=== PATIENT | female | born 2000 | race Caucasian/White ===

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

== ENCOUNTER 2022-01-28 08:00 | Outpatient (CLI) | payer BC ==
[2022-01-28 16:06] LABS: INFLUENZA A- RESP PCR PANEL NOT DETECTED; INFLUENZA B - RESP PCR PANEL NOT DETECTED; RSV- RESP PCR PANEL DETECTED; SARS-CoV-2 -RESP PCR PANEL NOT DETECTED
== END 2022-01-28 23:59 | disposition home or self-care (01) ==
LOC: LAB.S 08:00
PROVIDERS: ATTEND Registered Nurse
DX: R53.83 Other fatigue (principal); R05.1 Acute cough; R82.79 Other abnormal findings on microbiological examination of urine; R11.0 Nausea; R10.9 Unspecified abdominal pain; Z20.822 Contact with and (suspected) exposure to COVID-19; J34.89 Other specified disorders of nose and nasal sinuses
CPT/HCPCS: 36415; 80053; 85025; 86308; 87086; 87637

== ENCOUNTER 2022-01-28 13:35 | Outpatient (CLI) | payer BC ==
--- NOTE | 2022-01-28 13:32 | XRAY Report ---
PROCEDURE: Chest 2 View X-Ray INDICATIONS: ACUTE COUGH AND FATIGUE TECHNIQUE: 2 views of the chest were acquired. COMPARISON: 12/28/2016 FINDINGS: Surgical changes and devices: None. Lungs and pleura: No pleural effusions or pneumothorax. Lungs are clear. Mild peribronchial cuffin g. Mediastinum: Mediastinal contours are normal. Heart size is normal. Bones and chest wall: No suspicious bony abnormalities. Soft tissues appear unremarkable. Scoliosi s. IMPRESSION: No acute radiographic abnormality. Mild peribronchial cuffing can be seen with reactive or infectious bronchitis. Reviewed by: Ronaldo Doyle MD on 01/28/2022 1:30 PM [facility] Approved by: Ronaldo Doyle MD on 01/28/2022 1:30 PM PST Station ID: [id number]
[2022-01-28 20:01] LABS: BASOPHILS % (AUTO) 0.5 %; EOSINOPHILS # (AUTO) 0.1 10^3/uL (0.0-0.7); EOSINOPHILS % (AUTO) 0.6 %; HCT - HEMATOCRIT 44.7 % (37.0-47.0); HGB - HEMOGLOBIN 14.1 g/dL (12.0-16.0); LYMPHOCYTES # (AUTO) 2.1 10^3/uL (1.5-3.5); LYMPHOCYTES % (AUTO) 26.4 %; MEAN CORPUSCULAR HEMOGLOBIN 27.1 pg (27.0-31.0); MEAN CORPUSCULAR HGB CONC 31.5 g/dL (32.0-36.0); MEAN PLATELET VOLUME 11.5 fL (7.9-10.8); MONOCYTES # (AUTO) 0.5 10^3/uL (0.0-1.0); MONOCYTES % (AUTO) 6.8 %; NEUTROPHILS # (AUTO) 5.2 10^3/uL (1.5-6.6); NEUTROPHILS % (AUTO) 65.4 %; PLT - PLATELET COUNT 207 10^3/uL (130-450)
[2022-01-28 20:14] LABS: INFECTIOUS MONONUCLEOSIS NEGATIVE (Negative)
[2022-01-28 20:40] LABS: ALBUMIN 4.4 g/dL (3.2-5.5); ALBUMIN/GLOBULIN RATIO 1.3 (1.0-2.2); BILIRUBIN,TOTAL 0.8 mg/dL (0.2-1.0); CALCIUM 9.6 mg/dL (8.5-10.3); CREATININE 0.8 mg/dL (0.4-1.0); POTASSIUM 3.7 mmol/L (3.5-5.0); TOTAL PROTEIN 7.7 g/dL (6.7-8.2)
== END 2022-01-28 13:36 | disposition home or self-care (01) ==
LOC: DI.S 13:35
PROVIDERS: ATTEND Registered Nurse
DX: R53.83 Other fatigue (principal); R05.1 Acute cough; R11.0 Nausea; J34.89 Other specified disorders of nose and nasal sinuses; R10.9 Unspecified abdominal pain
CPT/HCPCS: 36415; 80053; 85025; 86308; 87086

== ENCOUNTER 2023-04-03 00:13 | Emergency (ER) | payer BC, MEDICAID ==
--- NOTE | 2023-04-03 00:51 | ED Physician Documentation ---
PD HPI MHE - Stated complaint Stated Complaint: MHE - Chief complaint Chief Complaint: MHE - History obtained from History obtained from: Patient, Family - Additional information Additional information: HPI is from patient, mother patient (in ED at patient's bedside). I have also gathered significant amount of the history of present illness from the triaging ED RN, as the patient is noticeably drowsy on my H&P and is only providing brief answers before falling back asleep repeatedly. Patient presents due to feeling depressed with thoughts of suicidal ideation. Regarding plan, she says she has considered overdosing on sleeping pills or cutting her wrists. She has been engaging in cutting behavior of bilateral upper extremities, but she tells me this was due to anxiety and not out of a desire to kill herself. Patient says she has had very little sleep and taken in very little food over the past 3 days. Patient says she stopped her medications approximate 1 month ago (thyroid medication and an antidepressant). The patient is requesting inpatient (mental health) treatment. PD PAST MEDICAL HISTORY - Past Medical History Past Medical History: Yes Endocrine/Autoimmune: HyPOthyroidism HEENT: Other Psych: Depression, Eating disorder - Past Surgical History Past Surgical History: Yes HEENT: Myringotomy (tubes), Tonsil/Adenoidectomy - Present Medications Home Medications: Ambulatory Orders Medication Instructions Recorded Confirmed Albuterol Sulf [Ventolin Hfa 2 puffs INH Q4HR PRN #1 inhaler 12/28/16 Inhaler] Azithromycin [Zithromax] 250 mg PO DAILY #4 tablet 12/28/16 Guanfacine HCl 1 mg PO DAILY 12/28/16 12/28/16 Levothyroxine [Synthroid] 1 tab PO DAILY 12/28/16 12/28/16 - Allergies Allergies/Adverse Reactions: Allergies Allergy/AdvReac Type Severity Reaction Status Date / Time Penicillins Allergy Nausea Verified 02/09/21 17:18 sulfamethoxazole AdvReac Nausea Verified 04/03/23 00:49 [From Bactrim] trimethoprim [From Bactrim] AdvReac Nausea Verified 04/03/23 00:49 - Social History Does the pt smoke?: No Smoking Status: Never smoker Does the pt drink ETOH?: No Does the pt have substance abuse?: No - Immunizations Immunizations are current?: Yes - POLST Patient has POLST: No PD ED PE NORMAL - Vitals Vital signs reviewed: Yes - General General: Alert and oriented X 3, No acute distress, Well developed/nourished, Other (sleepy/drowsy; falls asleep repeatedly during H+P) - HEENT HEENT: Moist mucous membranes - Cardiac Cardiac: RRR, No murmur - Respiratory Respiratory: No respiratory distress, Clear bilaterally - Abdomen Abdomen: Non tender - Neuro Neuro: Alert and oriented X 3 Eye Opening: To Voice Motor: Obeys Commands Verbal: Oriented GCS Score: 14 Results - Vitals Vitals: Vital Signs - 24 hr 04/03/23 04/03/23 00:18 06:00 Temperature 36.8 C Heart Rate 79 82 Respiratory 16 15 Rate Blood Pressure 135/76 H 135/66 H O2 Saturation 100 98 Oxygen O2 Source Room air - Labs Labs: Laboratory Tests 04/03/23 04/03/23 04/03/23 00:36 01:14 01:14 WBC 6.8 RBC 4.44 Hgb 11.9 L Hct 37.6 MCV 84.7 MCH 26.8 L MCHC 31.6 L RDW 12.7 Plt Count 175 MPV 10.5 Neut # (Auto) 4.0 Lymph # (Auto) 2.5 [place] # (Auto) 0.3 Eos # (Auto) 0.0 Baso # (Auto) 0.0 Absolute Nucleated RBC 0.00 Nucleated RBC % 0.0 Sodium 140 Potassium 3.5 Chloride 107 Carbon Dioxide 26 Anion Gap 7.0 BUN 16 Creatinine 0.7 Estimated GFR (MDRD) 107 Glucose 125 H Calcium 9.3 Magnesium 1.6 L Total Bilirubin 1.3 H AST 11 ALT 9 L Alkaline Phosphatase 60 Total Creatine Kinase 40 Total Protein 5.9 L Albumin 4.2 Globulin 1.7 L Albumin/Globulin Ratio 2.5 H Lipase 20 TSH 3.17 Urine Color Urine Clarity Urine pH Ur Specific [place] Urine Protein Urine Glucose (UA) Urine Ketones Urine Occult Blood Urine Nitrite Urine Bilirubin Urine Urobilinogen Ur Leukocyte Esterase Ur Microscopic Review Urine Culture Comments Urine HCG, Qual Salicylates < 1.5 Urine Opiates Screen Ur Buprenorphine Scrn Ur Oxycodone Screen Urine Methadone Screen Acetaminophen 0.1 Ur Barbiturates Screen Ur Tricyclics Screen Ur Phencyclidine Scrn Ur Amphetamine Screen U Methamphetamines Scrn U Benzodiazepines Scrn Urine Cocaine Screen U Cannabinoids Screen Ur Drug Screen Comment Ethyl Alcohol < 10.0 SARS-CoV-2 (PCR) NOT DETECTED 04/03/23 02:40 WBC RBC Hgb Hct MCV MCH MCHC RDW Plt Count MPV Neut # (Auto) Lymph # (Auto) [place] # (Auto) Eos # (Auto) Baso # (Auto) Absolute Nucleated RBC Nucleated RBC % Sodium Potassium Chloride Carbon Dioxide Anion Gap BUN Creatinine Estimated GFR (MDRD) Glucose Calcium Magnesium Total Bilirubin AST ALT Alkaline Phosphatase Total Creatine Kinase Total Protein Albumin Globulin Albumin/Globulin Ratio Lipase TSH Urine Color YELLOW Urine Clarity CLEAR Urine pH 6.0 Ur Specific [place] >=1.030 H Urine Protein TRACE Urine Glucose (UA) NEGATIVE Urine Ketones NEGATIVE Urine Occult Blood NEGATIVE Urine Nitrite NEGATIVE Urine Bilirubin NEGATIVE Urine Urobilinogen 1 (NORMAL) Ur Leukocyte Esterase NEGATIVE Ur Microscopic Review NOT INDICATED Urine Culture Comments NOT INDICATED Urine HCG, Qual NEGATIVE Salicylates Urine Opiates Screen NEGATIVE Ur Buprenorphine Scrn NEGATIVE Ur Oxycodone Screen NEGATIVE Urine Methadone Screen NEGATIVE Acetaminophen Ur Barbiturates Screen NEGATIVE Ur Tricyclics Screen NEGATIVE Ur Phencyclidine Scrn NEGATIVE Ur Amphetamine Screen NEGATIVE U Methamphetamines Scrn NEGATIVE U Benzodiazepines Scrn NEGATIVE Urine Cocaine Screen NEGATIVE U Cannabinoids Screen NEGATIVE Ur Drug Screen Comment CUTOFF CONC BELOW: Ethyl Alcohol SARS-CoV-2 (PCR) PD Medical Decision Making - ED course Complexity details: reviewed results, re-evaluated patient, considered differential, d/w patient, d/w family ED course: No remarkable/concerning findings on CBC, ER abdominal panel, urinalysis. She is COVID-negative, urine hCG negative. Urine drug screen is negative for the substances tested on this panel. Tylenol, aspirin, and ethanol levels are all undetectable. She is medically cleared for telepsychiatric consult. Before telepsychiatric consult is obtained, [facility] ED ONCOLOGY PHARMACIST was able to get in touch with staff at [facility] and they accept patient for transfer to their facility. Patient had specifically mentioned to the ED RN during triage process that she would prefer [facility] for inpatient treatment. Patient's mother asks if she can drive patient to [facility]; after we discussed risks/benefits (and option for BLS transport was offered), patient's mother would prefer to drive her daughter (patient) to [facility]. Departure - Departure Disposition: 65 Psych Hosp/Unit DC/Xfer Clinical Impression: Suicidal ideation Condition: Good Forms: PCP List Discharge Date/Time: 04/03/23 06:05
[2023-04-03 01:23] LABS: BASOPHILS % (AUTO) 0.6 %; EOSINOPHILS % (AUTO) 0.4 %; HCT - HEMATOCRIT 37.6 % (37.0-47.0); HGB - HEMOGLOBIN 11.9 g/dL (12.0-16.0); LYMPHOCYTES # (AUTO) 2.5 10^3/uL (1.5-3.5); LYMPHOCYTES % (AUTO) 36.6 %; MEAN CORPUSCULAR HEMOGLOBIN 26.8 pg (27.0-31.0); MEAN CORPUSCULAR HGB CONC 31.6 g/dL (32.0-36.0); MEAN CORPUSCULAR VOLUME 84.7 fL (81.0-99.0); MEAN PLATELET VOLUME 10.5 fL (7.9-10.8); MONOCYTES # (AUTO) 0.3 10^3/uL (0.0-1.0); NEUTROPHILS % (AUTO) 58.3 %; PLT - PLATELET COUNT 175 10^3/uL (130-450); RED BLOOD COUNT 4.44 10^6/uL (4.20-5.40); RED CELL DISTRIBUTION WIDTH 12.7 % (12.0-15.0); WHITE BLOOD COUNT 6.8 x10^3/uL (4.8-10.8)
[2023-04-03 01:56] LABS: THYROID STIMULATING HORMONE 3.17 uIU/mL (0.34-5.60)
[2023-04-03 02:14] LABS: ACETAMINOPHEN 0.1 ug/mL; ALBUMIN 4.2 g/dL (3.2-5.5); ALBUMIN/GLOBULIN RATIO 2.5 (1.0-2.2); ALKALINE PHOSPHATASE 60 IU/L (42-121); ALT ALANINE AMINOTRANSFERASE 9 IU/L (10-60); AST ASPARTATE AMINOTRANSFERASE 11 IU/L (10-42); BILIRUBIN,TOTAL 1.3 mg/dL (0.2-1.0); BUN - BLOOD UREA NITROGEN 16 mg/dL (6-20); CALCIUM 9.3 mg/dL (8.5-10.3); CARBON DIOXIDE - CO2 26 mmol/L (21-32); CHLORIDE 107 mmol/L (101-111); CK- CREATINE KINASE 40 IU/L (30-223); CREATININE 0.7 mg/dL (0.6-1.3); ETOH - ETHANOL < 10.0 mg/dL; GFR - MDRD 107 (>89); GLUCOSE 125 mg/dL (74-104); LIPASE 20 U/L (11-82); MAGNESIUM 1.6 mg/dL (1.7-2.3); POTASSIUM 3.5 mmol/L (3.5-4.5); SALICYLATE < 1.5 mg/dL; SODIUM 140 mmol/L (135-145); TOTAL PROTEIN 5.9 g/dL (6.4-8.9)
[2023-04-03 02:53] LABS: BILIRUBIN,URINE NEGATIVE (NEGATIVE); GLUCOSE, URINE (UA) NEGATIVE (NEGATIVE); KETONES,URINE (UA) NEGATIVE (NEGATIVE); LEUKOCYTE ESTERASE, URINE NEGATIVE (NEGATIVE); NITRITE,URINE NEGATIVE (NEGATIVE); OCCULT BLOOD,URINE NEGATIVE (NEGATIVE); PROTEIN,URINE TRACE mg/dL (NEGATIVE); UROBILINOGEN,URINE 1 (NORMAL) E.U./dL (NORMAL)
[2023-04-03 03:05] LABS: CLARITY,URINE CLEAR (CLEAR); HCG UR QUAL NEGATIVE
[2023-04-03 03:06] LABS: AMPHETAMINE SCREEN,URINE NEGATIVE (NEGATIVE); BARBITURATE SCREEN,UR NEGATIVE (NEGATIVE); BENZODIAZEPINES SCREEN, URINE NEGATIVE (NEGATIVE); BUPRENORPHINE SCREEN, URINE NEGATIVE (NEGATIVE); COCAINE SCREEN URINE NEGATIVE (NEGATIVE); METHADONE SCREEN, URINE NEGATIVE (NEGATIVE); METHAMPHETAMINES SCREEN, URINE NEGATIVE (NEGATIVE); OPIATE SCREEN, URINE NEGATIVE (NEGATIVE); OXYCODONE SCREEN, URINE NEGATIVE (NEGATIVE); THC CANNABINOID SCREEN, URINE NEGATIVE (NEGATIVE); TRICYCLIC ANTIDEPRESSANT,URINE NEGATIVE (NEGATIVE)
[2023-04-03 06:17] VITALS: BP 135/66; O2SAT 98
== END 2023-04-03 06:05 ==
LOC: ED 00:13
DX: R45.851 Suicidal ideations (principal); E03.9 Hypothyroidism, unspecified; Z79.899 Other long term (current) drug therapy
CPT/HCPCS: 36415; 80053; 80306; 80307; 80320; 80329; 81001; 81003; 81025; 82550; 83690; 83735; 84443; 85025; 87086; 87635; 99285

== ENCOUNTER 2023-10-06 16:29 | Emergency (ER) | payer MEDICAID ==
[2023-10-06 16:49] VITALS: BP 135/80; O2SAT 100
--- NOTE | 2023-10-06 16:57 | ED Physician Documentation ---
History of Present Illness - Stated complaint Stated Complaint: COUGH - Chief complaint Chief Complaint: Resp - History obtained from History obtained from: Patient - History of Present Illness Pain level max: 0 Pain level now: 0 - Additonal information Additional information: 22-year-old female presents to the emergency department since she has been out of her thyroid medication for the past several weeks. She is requesting a refill. History of Alexander's. States her thyroid dose is 125 mcg by mouth daily. Does not currently have a primary care provider. She states that she has also had a cough for the past several days. She states her work is requiring a COVID test before she is allowed to return to work. No fevers. No chills. The cough is dry. No chest pain. No shortness of breath. No nausea or vomiting. Denies any possibility of . 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 : None HEENT: None, Other Psych: Depression, Eating disorder Musculoskeletal: None Derm: None - Past Surgical History Past Surgical History: Yes HEENT: Myringotomy (tubes), Tonsil/Adenoidectomy - Present Medications Home Medications: Ambulatory Orders Medication Instructions Recorded Confirmed Levothyroxine [Synthroid] 1 tab PO DAILY 12/28/16 12/28/16 FLUoxetine [PROzac] 10 mg PO DAILY 10/06/23 Levothyroxine [Synthroid] 125 mcg PO QDAC #30 tablet 10/06/23 - Allergies Allergies/Adverse Reactions: Allergies Allergy/AdvReac Type Severity Reaction Status Date / Time Penicillins Allergy Nausea Verified 10/06/23 16:40 sulfamethoxazole AdvReac Nausea Verified 10/06/23 16:40 [From Bactrim] trimethoprim [From Bactrim] AdvReac Nausea Verified 10/06/23 16:40 - Social History Does the pt smoke?: No Smoking Status: Never smoker Does the pt drink ETOH?: No Does the pt have substance abuse?: No - Immunizations Immunizations are current?: Yes - POLST Patient has POLST: No PD ED PE NORMAL - Vitals Vital signs reviewed: Yes - General General: Alert and oriented X 3, No acute distress - HEENT HEENT: PERRL, Moist mucous membranes - Neck Neck: Supple, no meningeal sign - Cardiac Cardiac: RRR, Strong equal pulses - Respiratory Respiratory: No respiratory distress, Clear bilaterally - Abdomen Abdomen: Soft, Non tender, Non distended - Derm Derm: Warm and dry - Extremities Extremities: No edema - Neuro Neuro: Alert and oriented X 3 - Psych Psych: Normal mood, Normal affect Results - Vitals Vitals: Vital Signs - 24 hr 10/06/23 16:31 Temperature 37.0 C Heart Rate 94 Respiratory 16 Rate Blood Pressure 135/80 H O2 Saturation 100 Oxygen O2 Source Room air - Labs Labs: Laboratory Tests 10/06/23 16:30 Nasal Adenovirus (PCR) NOT DETECTED Nasal B. parapertussis DNA (PCR) NOT DETECTED Nasal Coronavir 229E PCR NOT DETECTED Nasal Coronavir HKU1 PCR NOT DETECTED Nasal Coronavir NL63 PCR NOT DETECTED Nasal Coronavir OC43 PCR NOT DETECTED Nasal Enterovir/Rhinovir PCR NOT DETECTED Nasal Influenza B PCR NOT DETECTED Nasal Influenza A PCR NOT DETECTED Nasal Parainfluen 1 PCR NOT DETECTED Nasal Parainfluen 2 PCR NOT DETECTED Nasal Parainfluen 3 PCR NOT DETECTED Nasal Parainfluen 4 PCR NOT DETECTED Nasal RSV (PCR) NOT DETECTED Nasal B.pertussis DNA PCR NOT DETECTED Nasal C.pneumoniae (PCR) NOT DETECTED Thanh Human Metapneumo PCR NOT DETECTED Nasal M.pneumoniae (PCR) NOT DETECTED Nasal SARS-CoV-2 (PCR) DETECTED A PD Medical Decision Making - ED course Complexity details: reviewed results, re-evaluated patient, considered differential, d/w patient ED course: Patient's thyroid medication was refilled for her. Information was given about the walk-in clinics where she can have her thyroid rechecked. She will need to establish with a primary care provider as well. Respiratory PCR is pending at the time of discharge. Will contact her with the results. Patient is well- appearing, nontoxic. Afebrile. No hypoxia or respiratory distress. Patient counseled regarding signs and symptoms for which I believe and urgent re- evaluation would be necessary. Patient with good understanding of and agreement to plan and is comfortable going home at this time This document was made in part using voice recognition software. While efforts are made to proofread this document, sound alike and grammatical errors may occur. Patient's respiratory panel is positive for COVID. I called and spoke with her at 1742. Patient informed of the results. We will send a work note home with her mother to give to her. Patient is agreeable to this. Departure - Departure Disposition: Home, Self Care Clinical Impression: Viral URI Hypothyroid Qualifiers: Hypothyroidism type: unspecified Qualified Code(s): E03.9 - Hypothyroidism, unspecified Condition: Good Instructions: ED Hypothyroidism, ED Viral Syndrome Follow-Up: [facility] [place] [Provider Group] [facility] [place] [Provider Group] Prescriptions: Levothyroxine [Synthroid] 125 mcg PO QDAC #30 tablet Comments: Your prescription was sent to [facility] in [place], as we discussed I will contact you later tonight with the results of your COVID test. It is importantly follow-up with a primary care provider to have your thyroid levels checked so they can adjust your medication. Please return if you worsen. Forms: PCP List, Activity restrictions Discharge Date/Time: 10/06/23 17:17
[2023-10-06 17:39] LABS: CORONAVIRUS 229E-RESP PCR NOT DETECTED; CORONAVIRUS HKU1-RESP PCR NOT DETECTED; CORONAVIRUS NL63-RESP PCR NOT DETECTED
[2023-10-06 17:40] LABS: CORONAVIRUS OC43-RESP PCR NOT DETECTED
[2023-10-06 17:41] LABS: B. PARAPERTUSSIS- RESP PCR PAN NOT DETECTED; B. PERTUSSIS- RESP PCR PANEL NOT DETECTED; C. PNEUMONIAE- RESP PCR PANEL NOT DETECTED; HUMAN METAPNEUMOVIRUS NOT DETECTED; INFLUENZA A- RESP PCR PANEL NOT DETECTED; INFLUENZA B - RESP PCR PANEL NOT DETECTED; M. PNEUMONIAE- RESP PCR PANEL NOT DETECTED; PARAINFLUENZA VIRUS 1 NOT DETECTED; PARAINFLUENZA VIRUS 2 NOT DETECTED; PARAINFLUENZA VIRUS 3 NOT DETECTED; PARAINFLUENZA VIRUS 4 NOT DETECTED; RHINOVIRUS/ENTEROVIRUS NOT DETECTED; RSV- RESP PCR PANEL NOT DETECTED; SARS-CoV-2 -RESP PCR PANEL DETECTED
== END 2023-10-06 17:17 | disposition home or self-care (01) ==
LOC: ED 16:29
DX: J06.9 Acute upper respiratory infection, unspecified (principal); E03.9 Hypothyroidism, unspecified; T38.1X6A Underdosing of thyroid hormones and substitutes, initial encounter; Z79.899 Other long term (current) drug therapy
CPT/HCPCS: 87633; 87635; 99282; 99283